=== PATIENT | female | born 1990 | race Caucasian/White ===

== ENCOUNTER 2018-05-25 15:00 | Outpatient (CLI) | payer OTHER ==
--- NOTE | 2018-05-25 16:50 | RAD ---
THREE IMAGES FROM THE CERVICAL SPINE FLEXION AND EXTENSION EVALUATION: COMPARISON: None. FINDINGS: Spinal alignment is preserved. Vertebral body heights and disk spaces are preserved. The prevertebr al soft tissues are normal appearing. No abnormal translational motion is evident. IMPRESSION: No abnormal translational motion. POS: STACI
== END 2018-05-25 15:01 | disposition home or self-care (01) ==
LOC: TBSIIMAG 15:00
PROVIDERS: ATTEND Neurological Surgery
DX: M54.2 Cervicalgia (principal)
CPT/HCPCS: 72040